=== PATIENT | male | born 1970 | race Caucasian/White ===

== ENCOUNTER 2023-01-27 13:06 | Emergency (ER) | payer BC, SELFPAY ==
[2023-01-27 13:25] VITALS: BP 137/83; PULSE 96; RESP 18; TEMP 37.3; O2SAT 96; BMI 29.5
--- NOTE | 2023-01-27 13:38 | ED_ITS ---
HPI - General Adult General Time Seen by Provider: 13:38 Date Seen: 01/27/23 Chief complaint: Headache/Migraine Stated complaint: Headache, chills, sore throat Time Seen by Provider: 01/27/23 13:31 Source: patient and RN notes reviewed Mode of arrival: ambulatory Limitations: no limitations History of Present Illness HPI narrative: Patient is a 52-year-old male coming in with concern stomach symptoms with sore throat and headache. He started with a sore throat and headache last night. Has not documented any fevers but did have chills. He does have body aches. No cough as of yet. Today has felt nauseated like he might throw up in does feel some abdominal discomfort with it. No diarrhea. Has had about half a bottle water today because he was feeling sick to his stomach. He works at [employer]. He has no known definite exposure, no travel recently. He has had no prior abdominal surgeries. Related Data Previous Rx's Medication Instructions Recorded omeprazole 20 mg capsule,delayed 20 mg PO QDAY #30 caps 03/28/22 release ondansetron 4 mg disintegrating 4 mg PO Q8H PRN nausea and 01/27/23 tablet vomiting #10 tabs Allergies Allergy/AdvReac Type Severity Reaction Status Date / Time No Known Drug Allergies Allergy Verified 01/27/23 13:25 Review of Systems Status of ROS: Reports: 6 or more systems reviewed and unremarkable except as noted in History and below Exam Const: Vital Signs, click to edit/add: Vital Signs - 24 hr 01/27/23 13:25 01/27/23 13:47 Temperature 99.2 F Pulse Rate [Pulse Oximeter] 96 Respiratory Rate 18 Blood Pressure [Ri ght Upper Arm] 137/83 Pulse Oximetry 96 98 Oxygen Delivery Me thod Room Air 52-year-old male is seen in exam room to , he is alert interactive no apparent distress. Cheeks look flushed, skin visualized without rash. Pupils are equal and round, conjugate gaze, sclera clear. Oropharynx with dry mucous membranes, no posterior pharyngeal erythema, swelling or exudates. Has a good oral airway. Voice is normal, no hoarseness. Neck is supple, no cervical adenopathy, no thyromegaly masses or nodules, nontender. Lungs are clear with good air entry, no wheezing or crackles, no rash over his back. CV regular rate and rhythm, no murmur. Abdomen is soft, he does not complain of any tenderness when I palpate. Bowel sounds are normal, abdomen is not distended, really does not have much for tenderness when I palpate. Documenting provider has reviewed patient's vital signs: yes Course Course ED Course: Patient will have an IV established, be monitored on pulse oximetry. We will give him a L of fluids and 4 mg IV Zofran. Did review with him that I do have concerns that this could be pointing to a COVID like illness, nursing staff had already collected the swab. We will get some baseline labs on him just to ensure that we are not missing other etiologies. Clinically, his abdominal exam is benign. Do not feel that further imaging is warranted at this time, await lab results and see how he response to some fluids and Zofran. Reevaluation(s) Time of Reevaluation #1: 14:33 Reevaluation #1: Reviewed with patient that he is COVID positive, other labs are reassuring and normal. Discussed treatment, he declines Paxilovid. Reviewed that I will send script for Zofran for him as he is likely to have some ongoing GI issues with this virus. Will write him a note for work. Vital Signs Vital signs: Initial Vital Signs Temperature 99.2 F 01/27/23 13:25 Temperature Source Temporal Artery Scan 01/27/23 13:25 Pulse Rate 96 01/27/23 13:25 Respiratory Rate 18 01/27/23 13:25 Blood Pressure 137/83 01/27/23 13:25 Blood Pressure Mean 101 01/27/23 13:25 Blood Pressure Position Sitting 01/27/23 13:25 Pulse Oximetry 96 01/27/23 13:25 Oxygen Delivery Method Room Air 01/27/23 13:25 Vital Signs Temperature 99.2 F 01/27/23 13:25 Pulse Rate 96 01/27/23 13:25 Respiratory Rate 18 01/27/23 13:25 Blood Pressure 137/83 01/27/23 13:25 Pulse Oximetry 96 01/27/23 13:25 Oxygen Delivery Method Room Air 01/27/23 13:25 Temperature 99.2 F 01/27/23 13:25 Pulse Rate 96 01/27/23 13:25 Respiratory Rate 18 01/27/23 13:25 Blood Pressure 137/83 01/27/23 13:25 Pulse Oximetry 98 01/27/23 13:47 Oxygen Delivery Method Room Air 01/27/23 13:25 Medical Decision Making Lab Data Lab results reviewed: Yes I reviewed the patient's lab results Labs: Lab Results 01/27/23 01/27/23 Range/Units 13:25 13:51 WBC 8.15 (4.50-11.00) K/uL RBC 4.72 (4.30-5.90) m/uL Hgb 13.6 (13.5-17.5) gm/dL Hct 40.9 (37.0-53.0) % MCV 87 (80-100) fL MCH 29 (26-34) pg MCHC 33 (32-36) gm/dL RDW Coeff of Reji 13.1 (11.5-15.5) % Plt Count 204 (140-440) K/uL Neut % (Auto) 87.8 H (42.0-72.0) % Lymph % (Auto) 3.9 L (20-44) % Cheyenne % (Auto) 6.5 (0.0-11.0) % Eos % (Auto) 1.1 (0.0-7.0) % Baso % (Auto) 0.5 (0.0-3.0) % Neut # (Auto) 7.20 H (1.7-7.0) K/uL Lymph # (Auto) 0.30 L (0.90-2.90) K/uL [place]yenne # (Auto) 0.50 (0.00-0.90) K/UL Eos # (Auto) 0.09 (0.00-0.50) K/uL Baso # (Auto) 0.04 (0.00-0.30) K/uL Abs Immat Gran (auto) 0.02 (0.00-0.30) K/uL Imm/Tot Granulo (auto) 0.2 % Sodium 137 (135-149) mmol/L Potassium 3.8 (3.6-5.1) mmol/L Chloride 102 (96-114) mmol/L Carbon Dioxide 22 (20-32) mmol/L Anion Gap 13 (7-15) mEq/L BUN 13 (7-30) mg/dL Creatinine 1.0 (0.5-1.5) mg/dL Estimated Creat Clear 85.43 Estimated GFR 90 ml/min Glucose 108 (60-115) mg/dL Lactate 1.2 (0.5-1.9) mmol/L Calcium 9.1 (8.4-10.6) mg/dL Total Bilirubin 1.2 (0.1-1.5) mg/dL AST 25 (12-35) U/L ALT 25 (4-50) U/L Alkaline Phosphatase 62 (40-150) U/L C-Reactive Protein 1.0 (0.5-1.0) mg/dL Total Protein 7.9 (6.0-8.3) g/dL Albumin 4.7 (3.3-5.0) g/dL Lipase 41 (23-300) U/L SARS-CoV-2 (PCR) POSITIVE SARS-CoV-2 A (Negative) Influenza Type A (PCR) Negative PCR FLU A (Negative) Influenza Type B (PCR) Negative PCR FLU B (Negative) Critical Care Time Critical Care Time Critical Care Time: No Discharge Plan Discharge Clinical Impression: COVID-19 Patient Disposition: Home, Self-Care Condition: Stable Instructions: COVID-19 (Coronavirus Disease 2019) (ED), COVID-19: Slow the Coronavirus Spread (ED) Additional Instructions: Use Zofran per prescriptions directions for ongoing nausea. Try to take frequent small sips of fluids while you are wake to stay hydrated. Appetite for solids will improve as you clear this virus. Need to quarantine per CDC guidelines for COVID-19. Note provided for work that you have COVID. If you are having increasing concerns with symptoms, difficulty breathing or shortness of breath, developed chest pain, do recommend re-evaluation. Activity Level: Activity as Tolerated Prescriptions: New ondansetron 4 mg tablet,disintegrating 4 mg PO Q8H PRN (Reason: nausea and vomiting) Qty: 10 0RF No Action omeprazole 20 mg capsule,delayed release(DR/EC) 20 mg PO QDAY Qty: 30 0RF Follow Up/Referrals: Provider,Not a Local [Primary Care Provider] - Stand Alone Forms: MyHealth Info Instructions
[2023-01-27 13:47] VITALS: O2SAT 98
[2023-01-27 14:02] LABS: Lactate* 1.2 mmol/L (0.5-1.9)
[2023-01-27 14:03] LABS: Basophils Absolute Auto 0.04 K/uL (0.00-0.30); Basophils Percent Auto 0.5 % (0.0-3.0); Eosinophils Absolute Auto 0.09 K/uL (0.00-0.50); Eosinophils Percent Auto 1.1 % (0.0-7.0); Hematocrit 40.9 % (37.0-53.0); Hemoglobin* 13.6 gm/dL (13.5-17.5); Immature Granulocytes Abs Auto 0.02 K/uL (0.00-0.30); Immature Granulocytes Pct Auto 0.2 %; Lymphocytes Percent Auto 3.9 % (20-44); Mean Corpuscular HGB Conc 33 gm/dL (32-36); Mean Corpuscular Hemoglobin 29 pg (26-34); Mean Corpuscular Volume 87 fL (80-100); Monocytes Percent Auto 6.5 % (0.0-11.0); Neutrophils Percent Auto 87.8 % (42.0-72.0); Platelet Count* 204 K/uL (140-440); RDW Coefficient of Variation % 13.1 % (11.5-15.5); Red Blood Count 4.72 m/uL (4.30-5.90); White Blood Count* 8.15 K/uL (4.50-11.00)
[2023-01-27 14:04] LABS: Slide Review Reflex No
[2023-01-27 14:06] LABS: PCR FLU A Negative PCR FLU A (Negative); PCR FLU B Negative PCR FLU B (Negative)
[2023-01-27 14:09] LABS: SARS PCR* POSITIVE SARS-CoV-2 (Negative)
[2023-01-27 14:17] LABS: Albumin* 4.7 g/dL (3.3-5.0); Chloride* 102 mmol/L (96-114)
[2023-01-27 14:18] LABS: Potassium* 3.8 mmol/L (3.6-5.1); Sodium* 137 mmol/L (135-149)
[2023-01-27 14:20] LABS: Est. Creatinine Clearance* 85.43; Estimated Glomerular Filt Rate 90 ml/min
[2023-01-27 14:21] LABS: Alanine Aminotransferase* 25 U/L (4-50); Alkaline Phosphatase* 62 U/L (40-150); Anion Gap 13 mEq/L (7-15); Aspartate Amino Transferase* 25 U/L (12-35); Bilirubin Total* 1.2 mg/dL (0.1-1.5); Blood Urea Nitrogen* 13 mg/dL (7-30); Calcium* 9.1 mg/dL (8.4-10.6); Carbon Dioxide* 22 mmol/L (20-32); Glucose* 108 mg/dL (60-115); Lipase* 41 U/L (23-300); Total Protein* 7.9 g/dL (6.0-8.3)
== END 2023-01-27 14:39 | disposition home or self-care (01) ==
PROVIDERS: Emergency Provider Family Medicine
DX: U07.1 COVID-19 (principal)
CPT/HCPCS: 36415; 80053; 83605; 83690; 85025; 86140; 87631; 94761; 96374; 99284

== ENCOUNTER 2024-06-15 16:26 | Emergency (ER) | payer BC, SELFPAY ==
--- OUTSIDE RECORDS SUMMARY | 2024-06-15 16:28 | XMS_ITS | Clinical Summary ---
Author Organization [facility] Address [place], [place] [address] Care Team Providers Care Sales Service Promoter Name Role Phone Sean Yung MD Primary Care Provider [phone] Allergies No known active allergies Medications omeprazole (PRILOSEC) 20 mg Delayed-Release capsule Take 1 capsule by mouth once daily before a meal. 09/11/2016 Active Active Problems Problem Noted Date Diagnosed Date Pain in left testicle 09/19/2016 Social History Tobacco Use Types Packs/Day Years Used Date Smoking Tobacco: Never Smokeless Tobacco: Current Chew Tobacco Cessation:Ready to Q uit: Yes; Counseling Given: Yes Comments:2 cans a week Alcohol Use Standard Drinks/Week Comments No 0 (1 standard drink = 0.6 oz pur e alcohol) Sex and Gender Information Value Date Recorded Sex Assigned at Not on file Legal Sex Male 11:17 AM CDT Gender Identity Not on file Sexual Orientation Not on file Obstetrics History Last Filed Vital Signs Vital Sign Reading Time Taken Comments Blood Pressure 124/83 09/19/2016 3:38 PM CDT tow er Pulse 61 09/19/2016 3:38 PM CDT Temperature 36.8 C (98.3 F) 09/19/2016 3:38 PM CDT Respiratory Rate - - Oxygen Saturation 100% 09/19/2016 3:38 PM CDT Inhaled Oxygen Concentration - - Weight 90.3 kg (199 lb) 09/19/2016 3:38 PM CDT Height 174 cm (5' 8.5) 09/19/2016 3:38 PM CDT Body Mass Index 29.82 09/19/2016 3:38 PM CDT Plan of Treatment Health Maintenance Due Date Last Done Comments Tdap 1980 Depression screening for age 12+ 1981 HIV for age 15-65 1984 Hepatitis C screening for ag e 18-79 1987 Tetanus booster 1989 Colonoscopy through age 75 2014 Lipids for age 45-75 2014 BMI (ht and wt on same day) for age 18+ 09/19/2017 09/19/2016 Pneumococcal series for age 50+ (1 of 1 - PCV) 2019 Zoster (shingles) series for age 50+ (1 of 2) 2019 COVID-19 vaccine series (1 - 2023- season) 2024 Influenza for age 50-64 01/19/2024 Pneumococcal series for age 6-49 Aged Out No longer eligible based on patient's age to complete this topic Insurance [facility] Care Teams Sales Service Promoter Relationship Specialty Start Date End Date Sean Yung MD [address] [place] [address] PCP - General Family Practice 08/06/16
[2024-06-15 16:59] VITALS: BP 133/82; PULSE 108; RESP 18; TEMP 37.8; O2SAT 96
--- OUTSIDE RECORDS SUMMARY | 2024-06-15 17:37 | XMS_ITS | Clinical Summary ---
Author Organization [facility] Address [place], [place] [address] Care Team Providers Care Pattern Storage Clerk Name Role Phone Sean Yung MD Primary Care Provider [phone] Allergies No known active allergies Medications omeprazole [...] patient's age to complete this topic Insurance [facility] Care Teams Pattern Storage Clerk Relationship Specialty Start Date End Date Sean Yung MD [address] [place] [address] PCP - General Family Practice 08/06/16
== END 2024-06-15 18:00 | disposition home or self-care (01) ==
LOC: ED 17:35
PROVIDERS: Emergency Provider Family Medicine
DX: J10.1 Influenza due to other identified influenza virus with other respiratory manifestations (principal)
CPT/HCPCS: 87631; 99283

== ENCOUNTER 2024-06-15 19:58 | Emergency (ER) | payer BC, SELFPAY ==
--- OUTSIDE RECORDS SUMMARY | 2024-06-15 20:00 | XMS_ITS | Clinical Summary ---
Author Organization [facility] Address [place], [place] [address] Care Team Providers Care Muffle Operator Name Role Phone Sean Yung MD Primary Care Provider [phone] Allergies No known active allergies Medications omeprazole [...] patient's age to complete this topic Insurance [facility] Care Teams Muffle Operator Relationship Specialty Start Date End Date Sean Yung MD [address] [place] [address] PCP - General Family Practice 08/06/16
[2024-06-15 21:30] VITALS: BP 154/83; PULSE 99; RESP 16; TEMP 37.1; O2SAT 99; BMI 25.1
--- NOTE | 2024-06-15 22:28 | ED_ITS ---
HPI - General Adult General Chief complaint: Headache/Migraine Stated complaint: Pain is back, now has a headache Time Seen by Provider: 06/15/24 22:27 History of Present Illness HPI narrative: Pt was here earlier in the day and then left. He has checked back in with stomachache, fever, sweats and chills. Declined swabs in triage. He wants to wait in his car, he is cold. 34-year-old man presenting to the emergency department with concern of a headache. He has aches all over. Has history of GERD and notes some pain in his upper left abdomen. He has a temperature to 101 use measured. I asked him what he would like from this visit he says he just wants to feel better and be able to sleep. Related Data Previous Rx's ?Medication ?Instructions ?Recorded omeprazole 20 mg capsule,delayed 20 mg PO QDAY #30 caps 03/28/22 release Allergies Allergy/AdvReac Type Severity Reaction Status Date / Time No Known Drug Allergies Allergy Verified 06/15/24 21:35 Review of Systems Status of ROS: Reports: 6 or more systems reviewed and unremarkable except as noted in History and below PFSH PFS Social History Smoking Status: Never smoker How often do you have a drink containing alcohol: monthly or less AUDIT-C Alcohol total score: 1 Non-prescribed substance use: denies use service: No Exam Narrative: Exam Narrative: Pleasant. Looks quite tired. Drawling with fatigued speech. Breathing easily. Lungs are clear. Heart is in elevated rate and regular rhythm. Abdomen is soft and not notably tender. He is well-perfused peripherally without edema. Oropharynx is mildly erythematous. Neck is supple without lymphadenopathy. Cranial nerves 2-12 intact. He has no meningeal signs other than headache. Const: Vital Signs, click to edit/add: Vital Signs - 24 hr 06/15/24 21:30 Temperature 98.8 F Pulse Rate [Right Pulse Oximeter] 99 Respiratory Rate 16 Blood Pressure [Ri ght Upper Arm] 154/83 H Pulse Oximetry 99 Oxygen Delivery Me thod Room Air Documenting provider has reviewed patient's vital signs: yes Course Vital Signs Vital signs: Initial Vital Signs Temperature 98.8 F 06/15/24 21:30 Temperature Source Temporal Artery Scan 06/15/24 21:30 Pulse Rate 99 01/27/25 21:30 Pulse Rhythm Regular 06/15/24 21:30 Pulse Strength 3+ Normal 06/15/24 21:30 Respiratory Rate 16 06/15/24 21:30 Blood Pressure 154/83 H 06/15/24 21:30 Blood Pressure Mean 106 H 06/15/24 21:30 Blood Pressure Position Sitting 06/15/24 21:30 Pulse Oximetry 99 06/15/24 21:30 Oxygen Delivery Method Room Air 06/15/24 21:30 Vital Signs Temperature 98.8 F 06/15/24 21:30 Pulse Rate 99 06/15/24 21:30 Respiratory Rate 16 06/15/24 21:30 Blood Pressure 154/83 H 06/15/24 21:30 Pulse Oximetry 99 06/15/24 21:30 Oxygen Delivery Method Room Air 06/15/24 21:30 Temperature 98.8 F 06/15/24 21:30 Pulse Rate 99 06/15/24 21:30 Respiratory Rate 16 06/15/24 21:30 Blood Pressure 154/83 H 06/15/24 21:30 Pulse Oximetry 99 06/15/24 21:30 Oxygen Delivery Method Room Air 06/15/24 21:30 Medications Administered Medications: Discontinued Medications Generic Name Dose Route Start Last Admin Trade Name Freq PRN Reason Stop Dose Admin Sodium Chloride 1,000 mls @ 1,000 mls/hr 06/15/24 22:36 06/16/24 00:02 0.9 % Sodium Chloride 1000 Ml IV 06/15/24 23:35 Infused .Q1H ONE Infusion Ketorolac Tromethamine 30 mg 06/15/24 22:36 06/15/24 22:56 Ketorolac 30 Mg/Ml Inj IVP 06/15/24 22:37 30 mg ONCE ONE Administration Ondansetron HCl 4 mg 06/15/24 22:36 06/15/24 22:56 Ondansetron 2 Mg/Ml Inj IVP 06/15/24 22:37 4 mg ONCE ONE Administration Medical Decision Making MDM Narrative Medical decision making narrative: I think most likely has influenza a considering community prevalence. Will swab for this give IV fluids and ketorolac for pain and recent fever. Does not appear to be encephalopathic Positive for Influenza type A Somewhat improved with treatment as above. Declining Tamiflu. See patient discharge plan for further discussion Focus on hydration. Might tolerate a sld educational aide diet better over the next 24-36 hours. Can take up to 800 mg of ibuprofen or up to 1000 mg of acetaminophen per dose. Alternative to the ibuprofen might be up to 500 mg of naproxen 2 times daily. Consider sleeping under the mist of a cool mist humidifier. Menthol vapors might be helpful. Medical Records Medical records reviewed: Yes I reviewed the patient's medical records Lab Data Lab results reviewed: Yes I reviewed the patient's lab results Labs: Lab Results 06/15/24 Range/Units 23:00 SARS-CoV-2 (PCR) Negative SARS-CoV-2 (Negative) Influenza Type A (PCR) POSITIVE PCR FLU A A (Negative) Influenza Type B (PCR) Negative PCR FLU B (Negative) RSV (PCR) Negative PCR RSV (Negative) Discharge Plan Discharge Clinical Impression: Influenza A, Myalgia Patient Disposition: Home, Self-Care Condition: Improved Additional Instructions: Focus on hydration. Might tolerate a sld educational aide diet better over the next 24-36 hours. Can take up to 800 mg of ibuprofen or up to 1000 mg of acetaminophen per dose. Alternative to the ibuprofen might be up to 500 mg of naproxen 2 times daily. Consider sleeping under the mist of a cool mist humidifier. Menthol vapors might be helpful. Prescriptions: No Action omeprazole 20 mg capsule,delayed release(DR/EC) 20 mg PO QDAY Qty: 30 0RF Follow Up/Referrals: Provider,Not a Local [Primary Care Provider] - Stand Alone Forms: [employer] Info Instructions
[2024-06-15] MEDS: 0.9 % SODIUM CHLORIDE 1000 ml 1,000 ML IV (22:56)
[2024-06-15] MEDS: ONDANSETRON 2 MG/ML inj 4 MG IVP (22:56)
[2024-06-15] MEDS: KETOROLAC 30 MG/ML inj IVP (22:56)
[2024-06-15 23:52] LABS: PCR FLU A POSITIVE PCR FLU A (Negative); PCR FLU B Negative PCR FLU B (Negative); PCR RSV Negative PCR RSV (Negative); SARS PCR* Negative SARS-CoV-2 (Negative)
== END 2024-06-16 00:25 | disposition home or self-care (01) ==
PROVIDERS: Emergency Provider Family Medicine
DX: J10.1 Influenza due to other identified influenza virus with other respiratory manifestations (principal); M79.10 Myalgia, unspecified site
CPT/HCPCS: 87637; 96361; 96374; 96375; 99284; J1885; J2405; J7030

== ENCOUNTER 2024-08-25 08:23 | Outpatient (CLI) | payer BC, SELFPAY | END 2024-08-25 08:24 | disposition home or self-care (01) | PROVIDERS: Visit Provider Family Medicine | DX: E78.5 Hyperlipidemia, unspecified (principal); I10 Essential (primary) hypertension | CPT/HCPCS: 80053; 80061 ==

== ENCOUNTER 2024-09-17 10:28 | Outpatient (CLI) | payer BC, SELFPAY ==
--- NOTE | 2024-09-17 12:15 | P.ANES_ITS ---
Anesthesia Charges Start Date/Time Anesthesia Start Date: 09/17/24 Anesthesia Start Time: 11:39 Stop Date/Time Anesthesia Stop Date: 09/17/24 Anesthesia Stop Time: 12:15 Coding CPT Codes CPT Codes: GRANT LWR INTST NDSC NOS - 58768 ([id number]) P2 - PATIENT W/MILD SYST DISEASE, QK - SHEET ROLLER OPERATOR 2-4 CNCRNT ANES PROC, QX - CEO [place] SVC W/ MD MED DIRECTION
--- NOTE | 2024-09-17 12:15 | W.ANESCHARGE ---
Anesthesia Charges Start Date/Time Anesthesia Start Date: 09/17/24 Anesthesia Start Time: 11:39 Stop Date/Time Anesthesia Stop Date: 09/17/24 Anesthesia Stop Time: 12:15 Coding CPT Codes CPT Codes: GRANT LWR INTST NDSC NOS - 35397 ([id number]) P2 - PATIENT W/MILD SYST DISEASE, QK - PATIENT SERVICE COORDINATOR 2-4 CNCRNT ANES PROC, QX - SCOUT PROFESSIONAL SPORTS SVC W/ MD MED DIRECTION
--- NOTE | 2024-09-17 12:42 | P.ANES_ITS ---
Anesthesia Charges Start Date/Time Anesthesia Start Date: 09/17/24 Anesthesia Start Time: 11:39 Stop Date/Time Anesthesia Stop Date: 09/17/24 Anesthesia Stop Time: 12:15 Coding CPT Codes CPT Codes: GRANT LWR INTST NDSC NOS - 61809 ([id number]) P2 - PATIENT W/MILD SYST DISEASE, QK - RPG DEVELOPER 2-4 CNCRNT ANES PROC, QX - EMBRYOLOGY PROFESSOR SVC W/ MD MED DIRECTION
--- NOTE | 2024-09-17 12:42 | W.ANESCHARGE ---
Anesthesia Charges Start Date/Time Anesthesia Start Date: 09/17/24 Anesthesia Start Time: 11:39 Stop Date/Time Anesthesia Stop Date: 09/17/24 Anesthesia Stop Time: 12:15 Coding CPT Codes CPT Codes: GRANT LWR INTST NDSC NOS - 44217 ([id number]) P2 - PATIENT W/MILD SYST DISEASE, QK - STAVE MACHINE TENDER 2-4 CNCRNT ANES PROC, QX - CLIENT RELATIONSHIP EXECUTIVE SVC W/ MD MED DIRECTION
== END 2024-09-17 10:29 | disposition home or self-care (01) ==
PROVIDERS: PCP Family Medicine; Visit Provider Surgery
DX: Z12.11 Encounter for screening for malignant neoplasm of colon (principal); D12.3 Benign neoplasm of transverse colon; D12.2 Benign neoplasm of ascending colon; D12.5 Benign neoplasm of sigmoid colon
CPT/HCPCS: 00811; 45385; 88305; J2704

== ENCOUNTER 2024-11-12 02:31 | Emergency (ER) | payer BC, SELFPAY ==
--- OUTSIDE RECORDS SUMMARY | 2024-11-12 02:33 | XMS_ITS | Clinical Summary ---
Author Organization [facility] [employer] [facility] Address [address] [place] [id number] Care Team Providers Care Bottle Blowing Machine Tender Name Role Phone Sean Yung MD Primary Care Provider Allergies No known active allergies Medications omeprazole [...] age 15-65 1984 Hepatitis C screening for age 18-79 1987 Hepatitis B series for 19+ ( 1 of 3 - 19+ 3-dose series) 1988 Tetanus booster 1989 Colonoscopy through age 75 2014 Lipids for age 45-75 2014 BMI (ht and wt on same day) for age 18+ 09/19/2017 0 09/19/2016 Pneumococcal series for age 50+ (1 of 1 - PCV) 019 Zoster (shingles) series for age 50+ (1 of 2) 05/19/20 19 COVID-19 vaccine series ( - 2023- season) Influenza Vaccine (Season Ended) 2025 Insurance [facility] Care Teams Bottle Blowing Machine Tender Relationship Specialty Start Date End Date Sean Yung MD [address] [place] [address] PCP - General Family Practice 08/06/16
[2024-11-12 02:36] VITALS: BP 165/75; PULSE 67; RESP 18; TEMP 36.7; O2SAT 100; BMI 25.1
--- NOTE | 2024-11-12 02:54 | CT_ITS ---
Patient: DEBORAH RAGSDALE Facility:?[facility] Patient ID:?[id number] Site Patient ID:?[id number]. Site :?[id number] Study:?CT-Abdomen/Pelvis W/ISOVUE 370 83CC-11/12/2024 3:24:48 AM Ordering Physician:FRANKLIN Final Report: INDICATION: Abdominal bloating. TECHNIQUE: CT abdomen and pelvis acquired with 83 cc Isovue 370 IV contrast. COMPARISON: None. FINDINGS: Lower chest: Unremarkable. Liver: Unremarkable. Normal in size and attenuation. No suspicious masses. Gallbladder and bile ducts: Unremarkable. No stones or inflammation. No biliary ductal dilatation. Spleen: Unremarkable. Normal in size. No masses. Adrenal glands: Unremarkable. No nodules. Pancreas: Unremarkable. No mass or inflammation. Kidneys: Small left renal cyst. No stones or hydronephrosis. GI tract: Colonic diverticulosis without evidence of diverticulitis. No evidence of obstruction. Normal appendix. Lymph nodes: No lymphadenopathy. Vasculature: Unremarkable. Omentum/Peritoneum/Abdominal Wall: Unremarkable. No free air or significant free fluid. Pelvis: Prostatomegaly. Bones: Unremarkable for age. IMPRESSION: 1. No acute abdominal or pelvic abnormality. 2. Colonic diverticulosis. 3. Prostatomegaly. Please note that all CT scans at this facility use dose modulation, iterative reconstruction, and/or weight-based dosing when appropriate to reduce radiation dose to as low as reasonably achievable. Dictated by Lakhwinder Mccollum MD @ 11/12/2024 3:32:33 AM Signed by:?Lakhwinder Mccollum MD @11/12/2024 3:32:33 AM (Electronic Signature)
[2024-11-12 03:05] LABS: Basophils Absolute Auto 0.04 K/uL (0.00-0.30); Basophils Percent Auto 0.7 % (0.0-3.0); Eosinophils Absolute Auto 0.24 K/uL (0.00-0.50); Eosinophils Percent Auto 4.2 % (0.0-7.0); Hematocrit 37.8 % (37.0-53.0); Hemoglobin* 12.7 gm/dL (13.5-17.5); Lymphocytes Absolute Auto 2.18 K/uL (0.90-2.90); Lymphocytes Percent Auto 38.2 % (20-44); Mean Corpuscular HGB Conc 34 gm/dL (32-36); Mean Corpuscular Hemoglobin 29 pg (26-34); Mean Corpuscular Volume 87 fL (80-100); Monocytes Percent Auto 6.8 % (0.0-11.0); Neutrophils Absolute Auto 2.86 K/uL (1.7-7.0); Neutrophils Percent Auto 50.1 % (42.0-72.0); Platelet Count* 197 K/uL (140-440); RDW Coefficient of Variation % 12.9 % (11.5-15.5); Red Blood Count 4.37 m/uL (4.30-5.90); White Blood Count* 5.71 K/uL (4.50-11.00)
--- NOTE | 2024-11-12 03:05 | ED_ITS ---
HPI - General Adult General Date Seen: 11/12/24 Chief complaint: Abdominal Pain Stated complaint: Stomach pain Time Seen by Provider: 11/12/24 02:41 Source: patient Mode of arrival: ambulatory Limitations: no limitations History of Present Illness HPI narrative: Patient is a 54-year-old male who comes in with the inability to sleep for the past two weeks. He says that he feels fine during the day but when he goes to lay down the evening he gets a strange feeling in his upper abdomen. He does not describe this as pain but more of a bloating. He says that his bed shakes like there is something crawling around inside of him. He has normal bowels. He takes omeprazole for acid reflux. He had an upper GI endoscopy several years ago. He just had a colonoscopy recently with normal findings. He saw his PCP in August and had normal labs done. He denies any new stressors or anxiety. The issue has been present for the past two weeks and is unclear why he chose to come at 2:30 a.m. [facility]. He says that time was no different. No black or bloody stools. He is eating and drinking well. He has untreated hypertension and only takes his omeprazole. No exertional chest pain. No palpitations. He has not tried a sleep med. Related Data Previous Rx's ?Medication ?Instructions ?Recorded omeprazole 20 mg capsule,delayed 20 mg PO QDAY #30 cap s 03/28/22 release Allergies Allergy/AdvReac Type Severity Reaction Status Date / Time No Known Drug Allergies Allergy Verified 11/12/24 02:37 Review of Systems Narrative: Review of systems is outlined above otherwise noted to be negative. [facility] Medical History (Updated 11/12/24 @ 03:41 by Graeme Yi MD) GERD (gastroesophageal reflux disease) ?K21.9 - Gastro-esophageal reflux disease without esophagitis (ICD-10) Hyperlipidemia ?E78.5 - Hyperlipidemia, unspecified (ICD-10) Hypertension ?I10 - Essential (primary) hypertension (ICD-10) Social History (Updated 08/25/24 @ 08:54 by Jessie Whitley~[facility], [facility]) What is your current living situation?: I presently have a place to live Problems where you live: no known problems In the past 12 months, utilities in danger of being shut off: no In past 12 months, lack of transportation kept you from medical appts, meetings, work, or getting things needed for daily living: no In the past 12 mos, have been you worried that your food would run out before you had money to buy more?: never true In the past 12 mos, the food you bought just didn't last and you didn't have money to buy more?: never true Smoking Status: Never smoker Do you use any of these nicotine containing products: Smokeless Tobacco Second hand tobacco smoke exposure: No How often do you have a drink containing alcohol: monthly or less AUDIT-C Alcohol total score: 1 Non-prescribed substance use: denies use How often does anyone, including family, friends and others, physically hurt you : never How often does anyone, including family, friends and others, insult or talk down to you: never How often does anyone, including family, friends and others, threaten you with harm: never How often does anyone, including family, friends and others, scream or curse at you: never service: No Exam Narrative: Exam Narrative: Vitals noted. HEENT: Conjunctiva clear. Tympanic membranes are pearly white bilaterally. Posterior pharynx is clear without erythema or exudate. Neck is supple without adenopathy, thyromegaly, carotid bruit. Lungs: Clear to auscultation in all candelaria. No wheezes, rales, rhonchi. Heart: Regular rate and rhythm without murmur. Abdomen: Soft and nontender. No guarding, rigidity, rebound. Bowel sounds are normal. No palpable masses. Extremities: No cyanosis or edema. Good distal pulses. Skin: No abnormalities noted of the exposed skin. Neurologic: Awake, alert, fully oriented. Neurologic exam is nonfocal. Const: Vital Signs, click to edit/add: Vital Signs - 24 hr 11/12/24 02:36 Temperature 98.0 F Pulse Rate [Right Pulse Oximeter] 67 Respiratory Rate 18 Blood Pressure [Ri ght Upper Arm] 165/75 H Pulse Oximetry 100 Oxygen Delivery Me thod Room Air Course Course ED Course: Patient is seen and examined. I will run some basic labs and get a CT of his abdomen and pelvis. It certainly appears that anxiety plays a role here but he denies this. Reevaluation(s) Reevaluation #1: CBC, BMP, LFTs, lipase are all normal. Reevaluation #2: CT of the abdomen pelvis is completely normal. Vital Signs Vital signs: Initial Vital Signs Temperature 98.0 F 11/12/24 02:36 Temperature Source Temporal Artery Scan 11/12/24 02:36 Pulse Rate 67 11/12/24 02:36 Respiratory Rate 18 11/12/24 02:36 Blood Pressure 165/75 H 11/12/24 02:36 Blood Pressure Mean 105 11/12/24 02:36 Blood Pressure Position Sitting 11/12/24 02:36 Pulse Oximetry 100 11/12/24 02:36 Oxygen Delivery Method Room Air 11/12/24 02:36 Vital Signs Temperature 98.0 F 11/12/24 02:36 Pulse Rate 67 11/12/24 02:36 Respiratory Rate 18 11/12/24 02:36 Blood Pressure 165/75 H 11/12/24 02:36 Pulse Oximetry 100 11/12/24 02:36 Oxygen Delivery Method Room Air 11/12/24 02:36 Temperature 98.0 F 11/12/24 02:36 Pulse Rate 67 11/12/24 02:36 Respiratory Rate 18 11/12/24 02:36 Blood Pressure 165/75 H 11/12/24 02:36 Pulse Oximetry 100 11/12/24 02:36 Oxygen Delivery Method Room Air 11/12/24 02:36 Medical Decision Making Lab Data Labs: Lab Results 11/12/24 Range/Units 03:00 WBC 5.71 (4.50-11.00) K/uL RBC 4.37 (4.30-5.90) m/uL Hgb 12.7 L (13.5-17.5) gm/dL Hct 37.8 (37.0-53.0) % MCV 87 (80-100) fL MCH 29 (26-34) pg MCHC 34 (32-36) gm/dL RDW Coeff of Reji 12.9 (11.5-15.5) % Plt Count 197 (140-440) K/uL Neut % (Auto) 50.1 (42.0-72.0) % Lymph % (Auto) 38.2 (20-44) % Dunn % (Auto) 6.8 (0.0-11.0) % Eos % (Auto) 4.2 (0.0-7.0) % Baso % (Auto) 0.7 (0.0-3.0) % Neut # (Auto) 2.86 (1.7-7.0) K/uL Lymph # (Auto) 2.18 (0.90-2.90) K/uL Dunn # (Auto) 0.40 (0.00-0.90) K/UL Eos # (Auto) 0.24 (0.00-0.50) K/uL Baso # (Auto) 0.04 (0.00-0.30) K/uL Abs Immat Gran (auto) 0.00 (0.00-0.30) K/uL Imm/Tot Granulo (auto) 0.0 % Sodium 139 (135-149) mmol/L Potassium 3.8 (3.6-5.1) mmol/L Chloride 103 (96-114) mmol/L Carbon Dioxide 25 (20-32) mmol/L Anion Gap 11 (7-15) mEq/L BUN 14 (7-30) mg/dL Creatinine 1.0 (0.5-1.5) mg/dL Estimated Creat Clear 83.47 Estimated GFR 89 ml/min Glucose 93 (60-115) mg/dL Calcium 9.5 (8.4-10.6) mg/dL Total Bilirubin 1.2 (0.1-1.5) mg/dL Direct Bilirubin 0.0 (0.0-0.5) mg/dL AST 21 (12-35) U/L ALT 15 (4-50) U/L Alkaline Phosphatase 57 (40-150) U/L Total Protein 7.4 (6.0-8.3) g/dL Albumin 4.7 (3.3-5.0) g/dL Lipase 64 (23-300) U/L Discharge Plan Discharge Clinical Impression: Abdominal bloating Patient Disposition: Home, Self-Care Condition: Stable Additional Instructions: Your labs and imaging are all normal. Try Tylenol p.m. to help with sleep. You can take Gas-X to help with intestinal gas. Continue omeprazole. If symptoms persist follow-up with Dr. Alas to discuss further testing. Prescriptions: No Action omeprazole 20 mg capsule,delayed release(DR/EC) 20 mg PO QDAY Qty: 30 0RF Follow Up/Referrals: Sean Yung MD [Primary Care Provider, Family Practice] Stand Alone Forms: [employer] Info Instructions
[2024-11-12 03:07] LABS: Slide Review Reflex No
[2024-11-12 03:17] LABS: Albumin* 4.7 g/dL (3.3-5.0); Chloride* 103 mmol/L (96-114); Potassium* 3.8 mmol/L (3.6-5.1); Sodium* 139 mmol/L (135-149)
[2024-11-12 03:20] LABS: Alanine Aminotransferase* 15 U/L (4-50); Alkaline Phosphatase* 57 U/L (40-150); Anion Gap 11 mEq/L (7-15); Aspartate Amino Transferase* 21 U/L (12-35); Bilirubin Total* 1.2 mg/dL (0.1-1.5); Blood Urea Nitrogen* 14 mg/dL (7-30); Calcium* 9.5 mg/dL (8.4-10.6); Carbon Dioxide* 25 mmol/L (20-32); Est. Creatinine Clearance* 83.47; Estimated Glomerular Filt Rate 89 ml/min; Glucose* 93 mg/dL (60-115); Total Protein* 7.4 g/dL (6.0-8.3)
[2024-11-12 03:21] LABS: Lipase* 64 U/L (23-300)
[2024-11-12 03:53] VITALS: BP 145/70; PULSE 60; RESP 18; TEMP 36.7; O2SAT 100
[2024-11-12 03:54] VITALS: BP 145/70; PULSE 60; RESP 18; TEMP 36.7
== END 2024-11-12 03:54 | disposition home or self-care (01) ==
PROVIDERS: Emergency Provider Family Medicine; PCP Family Medicine
DX: R14.0 Abdominal distension (gaseous) (principal)
CPT/HCPCS: 36415; 74177; 80048; 80076; 83690; 85025; 99282; 99284; 99285; Q9967